=== PATIENT | male | born 1975 | race Asian ===

== ENCOUNTER 2020-08-28 18:23 | Emergency (ER) | payer OTHER ==
--- NOTE | 2020-08-28 18:35 | Emergency Department Report ---
Blank Doc - Documentation Documentation: This is a 45-year-old male that presents with left-sided chest pain, shortness of breath, chest tightness, dizziness and near syncope. Patient stated that symptoms started today. Patient stated he was just recently diagnosed with coronary artery disease as well as hypertension. Denies taking any medication. 1- This initial assessment/diagnostic orders/clinical plan/ treatment(s) is/are subject to change based on pt's health status, clinical progression and re-assessment by fellow clinical providers in the ED. Further treatment and workup at subsequent clinical provers discretion. Patient/guardians urged not to elope from ED as their condition may be serious if not clinically assessed and managed. 2-cardiac work-up
[2020-08-28 19:11] LABS: Basophils # (Auto) 0.1 K/mm3 (0.0-0.1); Basophils % (Auto) 1.4 % (0.0-1.8); Eosinophils # (Auto) 0.1 K/mm3 (0.0-0.4); Eosinophils % (Auto) 1.5 % (0.0-4.3); Lymphocytes # (Auto) 1.9 K/mm3 (1.2-5.4); Lymphocytes % (Auto) 38.3 % (13.4-35.0); Mean Corpuscular HGB Conc 33 % (32-34); Mean Corpuscular Volume 89 fl (84-94); Monocytes # (Auto) 0.5 K/mm3 (0.0-0.8); Monocytes % (Auto) 9.1 % (0.0-7.3); Platelet Count 289 K/mm3 (140-440); Red Blood Count 4.73 M/mm3 (3.65-5.03)
--- NOTE | 2020-08-28 19:12 | XRay Report ---
CHEST 2 VIEWS INDICATION / CLINICAL INFORMATION: Chest Pain. COMPARISON: None available. FINDINGS: SUPPORT DEVICES: None. HEART / MEDIASTINUM: No significant abnormality. LUNGS / PLEURA: No significant pulmonary or pleural abnormality. No pneumothorax. ADDITIONAL FINDINGS: No significant additional findings. IMPRESSION: No significant abnormality Signer Name: Trell Akins MD FACR Signed: 08/28/2020 7:07 PM Workstation Name: [id number]
[2020-08-28 19:21] LABS: INR 1.02 (0.87-1.13)
[2020-08-28 19:22] LABS: Partial Thromboplastin Time 27.9 Sec. (24.2-36.6)
[2020-08-28 19:43] LABS: Alanine Aminotransferase 23 units/L (7-56); Albumin 4.6 g/dL (3.9-5); BUN/Creatinine Ratio 9; Blood Urea Nitrogen 9 mg/dL (9-20); Calcium 9.5 mg/dL (8.4-10.2); Hemolysis Index 9
--- NOTE | 2020-08-28 19:55 | Emergency Department Report ---
ED Chest Pain HPI - General Chief Complaint: Chest Pain Stated Complaint: CHEST PAIN Time Seen by Provider: 08/28/20 18:35 Source: patient Mode of arrival: Ambulatory Limitations: No Limitations - History of Present Illness Initial Comments: 45-year-old male with a past medical history of recently diagnosed elevated cholesterol presents to the hospital with complaints of chest pain that started while at work today. 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 Positive nausea without vomiting. Patient states he just found out earlier this week that he had elevated cholesterol and started a natural [id number] cholesterol medication. He denies other past medical history. He denies family history of CAD before the age of 65 was states that his father was diagnosed with aortic aneurysm in his 70s and subsequently had several heart attacks. He does not smoke cigarettes or abuse drugs specifically cocaine. He denies history of PE/DVT, calf tenderness, or leg edema. Patient currently complains of pain burning sensation across his chest. Severity scale (0 -10): 8 - Related Data Previous Rx's Medication Instructions Recorded Last Taken Type Aspirin EC [Ecotrin] 325 mg PO QDAY #30 tablet. 08/28/20 Unknown Rx Allergies Allergy/AdvReac Type Severity Reaction Status Date / Time Barbiturates Allergy Swelling Verified 08/28/20 20:16 shrimp Allergy Hives Verified 08/28/20 20:15 Heart Score - HEART Score History: Slightly suspicious EKG: Normal Age: < 45 Risk factors: 1-2 risk factors Troponin: < normal limit HEART Score: 1 ED Review of Systems ROS: Stated complaint: CHEST PAIN Other details as noted in HPI Comment: All other systems reviewed and negative ED Past Medical Hx - Past Medical History Previous Medical History?: No - Surgical History Past Surgical History?: No - Medications Home Medications: Home Medications Medication Instructions Recorded Confirmed Last Taken Type Aspirin EC [Ecotrin] 325 mg PO QDAY #30 tablet. 08/28/20 Unknown Rx ED Physical Exam - General Limitations: No Limitations - Other Other exam information: General: No acute distress Head: Atraumatic Eyes: normal appearance ENT: Moist mucous membranes Neck: Normal appearance, no midline tenderness Chest: Clear to auscultation bilaterally, mild anterior chest wall tenderness CV: Regular rate and rhythm Abdomen: Soft, normal bowel sounds, nontender, nondistended, no rebound or guarding Back: Normal inspection Extremity: Normal inspection, full range of motion, no calf tenderness or leg edema Neuro: Alert O x 3, no facial asymmetry, speech clear, no gross motor sensory d eficit Psych: Appropriate behavior Skin: No rash ED Course Vital Signs 08/28/20 08/28/20 08/28/20 18:36 19:45 21:07 Temperature 98.5 F 98.0 F Pulse Rate 63 59 L 52 L Respiratory 18 14 17 Rate Blood Pressure 132/86 Blood Pressure 125/88 126/64 [Right] O2 Sat by Pulse 99 99 98 Oximetry ELIF score - Elif Score Age > 65: (0) No Aspirin use within the Past 7 Days: (0) No 3 or more CAD Risk Factors: (0) No 2 or more Angina events in past 24 hrs: (0) No Known CAD with more than 50% Stenosis: (0) No Elevated Cardiac Markers: (0) No ST Deviation Greater than 0.5mm: (0) No ELIF Score: 0 ED Medical Decision Making - Lab Data Result diagrams: 08/28/20 18:54 08/28/20 18:54 Lab Results 08/28/20 08/28/20 08/28/20 Range/Units 18:54 18:54 18:54 WBC 5.0 (4.5-11.0) K/mm3 RBC 4.73 (3.65-5.03) M/mm3 Hgb 14.0 (11.8-15.2) gm/dl Hct 42.0 (35.5-45.6) % MCV 89 (84-94) fl MCH 30 (28-32) pg MCHC 33 (32-34) % RDW 14.0 (13.2-15.2) % Plt Count 289 (140-440) K/mm3 Lymph % (Auto) 38.3 H (13.4-35.0) % [place] % (Auto) 9.1 H (0.0-7.3) % Eos % (Auto) 1.5 (0.0-4.3) % Baso % (Auto) 1.4 (0.0-1.8) % Lymph # (Auto) 1.9 (1.2-5.4) K/mm3 [place] # (Auto) 0.5 (0.0-0.8) K/mm3 Eos # (Auto) 0.1 (0.0-0.4) K/mm3 Baso # (Auto) 0.1 (0.0-0.1) K/mm3 Seg Neutrophils % 49.7 (40.0-70.0) % Seg Neutrophils # 2.5 (1.8-7.7) K/mm3 PT 13.2 (12.2-14.9) Sec. INR 1.02 (0.87-1.13) APTT 27.9 (24.2-36.6) Sec. D-Dimer (0-234) ng/mlDDU Sodium 140 (137-145) mmol/L Potassium 3.9 (3.6-5.0) mmol/L Chloride 103.5 (98-107) mmol/L Carbon Dioxide 29 (22-30) mmol/L Anion Gap 11 mmol/L BUN 9 (9-20) mg/dL Creatinine 1.0 (0.8-1.3) mg/dL Estimated GFR > 60 ml/min BUN/Creatinine Ratio 9 % Glucose 96 (75-100) mg/dL Calcium 9.5 (8.4-10.2) mg/dL Total Bilirubin < 0.20 (0.1-1.2) mg/dL AST 20 (5-40) units/L ALT 23 (7-56) units/L Alkaline Phosphatase 44 (35-129) units/L Troponin T < 0.010 (0.00-0.029) ng/mL Total Protein 7.8 (6.3-8.2) g/dL Albumin 4.6 (3.9-5) g/dL Albumin/Globulin Ratio 1.4 % 08/28/20 08/28/20 Range/Units 18:54 21:29 WBC (4.5-11.0) K/mm3 RBC (3.65-5.03) M/mm3 Hgb (11.8-15.2) gm/dl Hct (35.5-45.6) % MCV (84-94) fl MCH (28-32) pg MCHC (32-34) % RDW (13.2-15.2) % Plt Count (140-440) K/mm3 Lymph % (Auto) (13.4-35.0) % [place] % (Auto) (0.0-7.3) % Eos % (Auto) (0.0-4.3) % Baso % (Auto) (0.0-1.8) % Lymph # (Auto) (1.2-5.4) K/mm3 [place] # (Auto) (0.0-0.8) K/mm3 Eos # (Auto) (0.0-0.4) K/mm3 Baso # (Auto) (0.0-0.1) K/mm3 Seg Neutrophils % (40.0-70.0) % Seg Neutrophils # (1.8-7.7) K/mm3 PT (12.2-14.9) Sec. INR (0.87-1.13) APTT (24.2-36.6) Sec. D-Dimer < 135.00 (0-234) ng/mlDDU Sodium (137-145) mmol/L Potassium (3.6-5.0) mmol/L Chloride (98-107) mmol/L Carbon Dioxide (22-30) mmol/L Anion Gap mmol/L BUN (9-20) mg/dL Creatinine (0.8-1.3) mg/dL Estimated GFR ml/min BUN/Creatinine Ratio % Glucose (75-100) mg/dL Calcium (8.4-10.2) mg/dL Total Bilirubin (0.1-1.2) mg/dL AST (5-40) units/L ALT (7-56) units/L Alkaline Phosphatase (35-129) units/L Troponin T < 0.010 (0.00-0.029) ng/mL Total Protein (6.3-8.2) g/dL Albumin (3.9-5) g/dL Albumin/Globulin Ratio % - EKG Data -: EKG Interpreted by Vt EKG shows normal: sinus rhythm, ST-T waves (no stemi) Rate: normal - EKG Data When compared to previous EKG there are: previous EKG unavailable 08/28/20 22:11 Patient's repeat EKG in the ED does not show any acute changes and still does not have signs of ischemia ST elevation MT. - Radiology Data Radiology results: report reviewed CT angiogram chest: No acute findings no pulmonary embolism no abnormality Chest x-ray: No acute finding - Medical Decision Making 45-year-old male with a past medical history of recently diagnosed elevated cholesterol presents to the hospital with chest pain and concern of cardiac and vascular disease given father's history of aneurysm. ED work-up unremarkable. Patient has a EKG without signs of ischemia x2, negative troponin x2, negative chest x-ray, normal CT angiogram chest and his only cardiac risk factor seems to be newly diagnosed elevated cholesterol at this time. Patient will be discharged home with aspirin daily and encouraged to follow-up with cardiology for outpatient evaluation and stress testing. Information faxed to [facility] for outpatient stress testing Critical Care Time: No Critical care attestation.: If time is entered above; I have spent that time in minutes in the direct care of this critically ill patient, excluding procedure time. ED Disposition Clinical Impression: Chest pain Disposition: - TO HOME OR SELFCARE Is pt being admited?: No Does the pt Need Aspirin: No Condition: Stable Instructions: Chest Pain (ED), Nonspecific Chest Pain, Adult Additional Instructions: Take the medication as prescribed. Take additional Motrin or tylenol as needed for pain. Follow-up with your doctor or doctor/clinic provided. Return if symptoms worsen as indicated by your discharge instructions. Prescriptions: Aspirin EC [Ecotrin] 325 mg PO QDAY #30 tablet.dr Referrals: HUEY FOX MD [Staff Physician] - 2-3 Days Time of Disposition: 22:15
--- NOTE | 2020-08-28 20:32 | Cat Scan Report ---
CT angio chest INDICATION / CLINICAL INFORMATION: chest pain, family hx of aneursym. TECHNIQUE: Axial CT images were obtained after injection of 100 cc of Omnipaque 350 IV contrast using CTA protoc ol. 3 plane MIP / 3D reconstructions were produced. All CT scans at this location are performed using CT dose reduction for ALARA by means of automated exposure control. COMPARISON: None available. FINDINGS: Following the injection of intravenous contrast, no definite filling defects are seen in the main pul monary arteries or their branches. No significant parenchymal abnormality is seen in the lungs. No en larged mediastinal or hilar lymph nodes are identified. No significant skeletal abnormality is seen. IMPRESSION: No evidence of pulmonary embolus. Negative CTA of the chest Signer Name: Trell Akins MD FACR Signed: 08/28/2020 8:28 PM Workstation Name: [id number]
[2020-08-28 22:45] VITALS: BP 134/85
== END 2020-08-28 22:44 | disposition home or self-care (01) ==
LOC: ED 18:23
DX: R07.89 Other chest pain (principal); R06.02 Shortness of breath; R20.0 Anesthesia of skin; Z79.899 Other long term (current) drug therapy; Z91.013 Allergy to seafood; Z88.8 Allergy status to other drugs, medicaments and biological substances
CPT/HCPCS: 36415; 71046; 71275; 80053; 84484; 85025; 85379; 85610; 85730; 93005; 99285; Q9967